=== PATIENT | male | born 1985 | race Caucasian/White ===

== ENCOUNTER 2019-03-30 06:39 | Emergency (ER) | payer BC, OTHER ==
[~2019-03-30] VITALS: Ht 182.9 cm; Wt 88.5 kg
[~2019-03-30 06:39] MED LIST: ACETAMINOPHEN500 MG PO; ALLEGRA ALLERG180 MG PO; IBUP800 PO; Omeprazole20 M1 PO; Prednisone20 MG PO
[2019-03-30] MEDS ORDERED: CYCL10 PO (07:37)
== END 2019-03-30 07:49 | disposition home or self-care (01) ==
LOC: ER 06:39
DX: M54.6 Pain in thoracic spine (principal)
CPT/HCPCS: 99283